=== PATIENT | male | born 1935 | race Caucasian/White ===

== ENCOUNTER 2021-06-20 15:23 | Emergency (ER) | payer MEDICARE, SELFPAY ==
[2021-06-20 15:25] VITALS: BP 146/80; PULSE 71; RESP 18; TEMP 36.4; O2SAT 98; BMI 24.9
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
== END 2021-06-20 16:58 | disposition home or self-care (01) ==
PROVIDERS: Emergency Provider Emergency Medicine; PCP Family Medicine
DX: S50.12XA Contusion of left forearm, initial encounter (principal); V47.0XXA Car driver injured in collision with fixed or stationary object in nontraffic accident, initial encounter; Y93.89 Activity, other specified; Y92.9 Unspecified place or not applicable; Y99.8 Other external cause status
CPT/HCPCS: 73090; 99284